=== PATIENT | male | born 1990 | race Caucasian/White ===

== ENCOUNTER 2024-04-19 11:37 | Emergency (ER) | payer MEDICARE, OTHER ==
[~2024-04-19] VITALS: Ht 177.8 cm; Wt 121.0 kg
[2024-04-19 11:42] VITALS: BP 173/111; PULSE 84; RESP 18; TEMP 98.1; O2SAT 98
[2024-04-19] MEDS ORDERED: CYCL10TA21 MT (12:33)
== END 2024-04-19 13:00 | disposition home or self-care (01) ==
LOC: ER 11:52
DX: M54.2 Cervicalgia (principal); M54.6 Pain in thoracic spine
CPT/HCPCS: 99283